=== PATIENT | male | born 1995 | race Hispanic/Latino ===

== ENCOUNTER 2025-02-21 11:11 | Emergency (ER) | payer SELFPAY ==
[~2025-02-21] VITALS: Ht 177.8 cm; Wt 73.5 kg
[2025-02-21 11:45] VITALS: PULSE 81; RESP 14; TEMP 97.8
[2025-02-21 12:30] LABS: BASOPHILS % 0.4 % (0.0-1.0); EOSINOPHILS % 1.2 % (0.0-6.0); LYMPHOCYTES % 23.3 % (18.0-39.1); MONOCYTES % 6.0 % (4.4-11.3); NEUTROPHILS % 68.9 % (38.7-80.0); RED CELL DISTRIBUTION WIDTH 13.3 % (11.7-14.4)
[2025-02-21 12:44] LABS: EST GLOMERULAR FILTRATION RATE 119.0 ML/MIN (>=60)
[2025-02-21] MEDS ORDERED: PEPCID20 MG PO (12:57)
[2025-02-21 13:29] VITALS: BP 122/89; PULSE 56; RESP 14; O2SAT 100
== END 2025-02-21 13:20 | disposition home or self-care (01) ==
LOC: ER 11:47
DX: K92.1 Melena (principal)
CPT/HCPCS: 36415; 80053; 85025; 99283